=== PATIENT | female | born 1945 | race Caucasian/White ===

== ENCOUNTER 2017-07-21 09:03 | Emergency (ER) | payer MEDICARE ==
[2017-07-21] MEDS ORDERED: diphenhydrAMINE 50 MG/ML VIAL (09:10)
[2017-07-21] MEDS ORDERED: FAMOTIDINE 20 MG/2 ML VIAL (09:10)
[2017-07-21] MEDS ORDERED: methylPREDNISolone SOD SUCC PF 125 MG/2 ML VIAL. (09:11)
[2017-07-21] MEDS: methylPREDNISolone SOD SUCC PF 125 MG/2 ML VIAL. IV (09:26)
[2017-07-21] MEDS: FAMOTIDINE 20 MG/2 ML VIAL IVP (09:27)
[2017-07-21] MEDS: diphenhydrAMINE 50 MG/ML VIAL IV (09:30)
[2017-07-21] MEDS: EPINEPHrine 1 MG/ML VIAL IM (09:31)
[2017-07-21] MEDS: IV NORMAL SALINE 1000ML BAG 500 ML IV (09:34)
[2017-07-22 07:17] LABS: NEGATIVE OBC STREP NEG; POSITIVE OBC STREP POS
== END 2017-07-21 13:29 | disposition home or self-care (01) ==
LOC: ER 09:03
DX: T78.3XXA Angioneurotic edema, initial encounter (principal); T88.7XXA Unspecified adverse effect of drug or medicament, initial encounter; T46.4X5A Adverse effect of angiotensin-converting-enzyme inhibitors, initial encounter; R05 Cough; F41.9 Anxiety disorder, unspecified; I13.0 Hypertensive heart and chronic kidney disease with heart failure and stage 1 through stage 4 chronic kidney disease, or unspecified chronic kidney disease; N18.9 Chronic kidney disease, unspecified; I50.9 Heart failure, unspecified; J44.9 Chronic obstructive pulmonary disease, unspecified; E78.00 Pure hypercholesterolemia, unspecified; G89.29 Other chronic pain; I27.20 Pulmonary hypertension, unspecified; Z88.0 Allergy status to penicillin; Z88.2 Allergy status to sulfonamides; Z90.10 Acquired absence of unspecified breast and nipple; Z79.899 Other long term (current) drug therapy; Z88.8 Allergy status to other drugs, medicaments and biological substances
CPT/HCPCS: 87070; 87880; 96361; 96372; 96374; 96375; 99285-25; J0171; J1200; J2930; J7030; S0028

== ENCOUNTER → 2020-08-08 | Outpatient (CLI) | payer MEDICARE ==
[2017-07-21 13:20] VITALS: BP 157/87
[~2020-08-08] MED LIST: ACET500T68 PO; ALBU2.5V8 INH; ALPR0.254 PO; ALPR0.5T6 PO; ASCO500C PO; ASPI-630 PO; ATOR40TA59 PO; BUDE10.2 IH; BUPR150T7 PO; BUSP15TA PO; DULO60CA45 PO; GABA300C18 PO; HYDR-2761 PO; LISI-338 PO; METO-239 PO; MULT-445 PO; OLME20TA17 PO; OMEP40CA45 PO; OXYB10TA26 PO; POTA20TA4 PO; PRED-220 PO; PRED50TA PO; TIZA4CAP PO; TRAM50TA PO; dayquil
--- NOTE | 2020-08-08 14:50 | PDOC1 ---
INITIAL PAIN CONSULT DATE OF SERVICE: DOS: DATE: 08/08/20 TIME: 14:44 CHIEF COMPLAINT: Chief Complaint: Low back and bilateral lower extremity pain HISTORY OF PRESENT ILLNESS: 75-year-old female presents history of pain in the low back bilateral lower extremities as well as the knees and hips for many years worse since about 2 months ago without any specific injury or accident that she is aware but reports that it was becoming more painful with walking and standing changing positions pain in the low back as well as the mid back rating the bilateral posterior gluteus posterior thighs lateral thighs anterior thighs medial knees and into the calves to the ankles bilaterally. Patient reports right essentially equal to left describes the pain is constant sharp stabbing throbbing shooting tingling in the legs with shooting pain in the lower extremities radiating into the legs as described patient which is burning and cramping in the back as well as aching wakes her from sleep at least once or twice a night does not affect her bowel bladder control but does affect her ability to walk as she has significant fatigability and the legs get achy and painful after about 10 minutes of standing or walking. Patient has had physical therapy as well as trigger point injections in the past both of which were helpful currently taking prednisone 10 mg daily which helps by about 30% as well. Patient reports she was recently on 20 mg prednisone is helped about 90%. Patient not had any diagnostic studies at this time. Patient rates her disability rating 0-10 10 being the worst is a 9 with family home responsibilities recreation social activity 8 with occupation 7 with self-care and 10 with life support activities especially sleeping. Patient has been doing stretching and strength exercises on her own which she learned in physical therapy in the past but would like to pursue more physical therapy PAST MEDICAL HISTORY: PMH: Hypertension, hearing loss, COPD, history of breast cancer, dizziness, arthritis, osteoarthritis, depression, kidney disease, pulmonary hypertension PREVIOUS SURGERIES: Past Surgical Hx: Tonsillectomy, left partial mastectomy CURRENT MEDICATIONS: Current Meds: Active Scripts Medications Dose Route/Sig Max Daily Dose Days Date Category [dayquil] PRN 08/08/20 Reported Acetaminophen 500 Mg Tablet 3 Tab PO PRN Q6HRS PRN 15 08/08/20 Reported Vitamin C (Ascorbic Acid) 500 Mg Capsule.er 250 Mg PO DAILY 08/08/20 Reported Tramadol Hcl 50 Mg Tablet 50 Mg PO Q6HRS PRN 08/08/20 Reported Gabapentin (Gabapentin) 300 Mg Capsule 300 Mg PO DAILY 08/08/20 Reported Benicar (Olmesartan Medoxomil) 20 Mg Tablet 10 Mg PO DAILY 08/08/20 Reported Bupropion Xl (Bupropion Hcl) 150 Mg Tab.er.24h 1 Tab PO DAILY 08/08/20 Reported Buspirone Hcl 15 Mg Tablet 15 Mg PO BID 08/08/20 Reported Omeprazole 40 Mg Capsule.dr 1 Cap PO DAILY 08/08/20 Reported Alprazolam 0.5 Mg Tablet 1 Tab PO BID PRN 08/08/20 Reported Proair Hfa Inhaler (Albuterol Sulfate) 8.5 Gm Hfa.aer.ad 1 Puff INH PRN Q6HRS PRN 03/11/16 Rx Prednisone (Prednisone) 10 Mg Tablet 50 Mg PO DAILY 03/11/16 Rx Metoprolol Succinate ( Xl ) (Metoprolol Succinate) 25 Mg Tab.er.24h 0.5 Tab PO DAILY 03/11/16 Reported Tizanidine Hcl 4 Mg Capsule 4 Mg PO TID PRN 03/11/16 Reported Multivitamins (Multivitamin) 1 Each Tablet 1 Tab PO DAILY 03/11/16 Reported Duloxetine Hcl 60 Mg Capsule.dr 60 Mg PO DAILY 03/11/16 Reported Atorvastatin Calcium 40 Mg Tablet 1 Tab PO QHS 03/11/16 Reported Aspirin 81 Mg Tab.chew 1 Tab PO DAILY 03/11/16 Reported ALLERGIES; Allergies: Coded Allergies: lisinopril (Verified Allergy, Severe, ANGIOEDEMA, 07/21/17) Penicillins (Verified Allergy, Intermediate, 07/21/17) Sulfa (Sulfonamide Antibiotics) (Verified Adverse Reaction, Intermediate, 07/21/17) pt states, 'I'm not really allergic to it, but I'm beginning to have problems since I've had them so much." FAMILY HISTORY: Family Hx: Cancer and heart disease SOCIAL HISTORY: Social Hx: Patient does not renate alcohol does not smoke or use any illegal illicit or recreational drugs is lives locally with 2 grandchildren living at home with her REVIEW OF SYSTEMS: ROS: Positive for those items mentioned in history of present illness, all systems are reviewed, otherwise negative, is complete full and well-documented on patient's chart PHYSICAL EXAM: VS: Blood pressure is 144/87 pulse 80 respirations 16 temperature is 97.9 F height is 5 foot 4 inches weight is 136 pounds PE: PHYSICAL EXAMINATION: GENERAL: The patient is awake, alert, oriented, appropriate, very pleasant demeanor HEENT: Shows normocephalic, atraumatic. Extraocular movements are intact and symmetrical. Oral cavity: Mucous membranes moist and pink. NECK: Shows anterior throat supple without palpable lymphadenopathy noted. Swallow reflex symmetrical. CHEST: Shows normal on inspection. Breath sounds are clear bilaterally, distant but no rales rhonchi wheezes auscultated. HEART: Shows S1, S2 clear. No murmurs auscultated. ABDOMEN: Soft, nontender, nondistended, obese. No palpable organomegaly is noted. BACK: Shows spine grossly in the midline. Normal-appearing cervical lordotic curvature. There is increased thoracic kyphosis, some flattening of the lumbar lordotic curvature. Lumbar paraspinous muscles show symmetrical on inspection, on palpation shows some moderate tenderness diffusely throughout the upper, middle and lower distribution of the paraspinous muscles bilaterally and also into the lower thoracic paraspinous musculature, firm and tender, but without specific trigger points, without radiation of pain. The patient has good rotational motion of the lumbar spine, both laterally as well as extension and flexion without significant difficulty. No tenderness over the spinous processes, sacrum or sacroiliac regions. EXTREMITIES: Lower extremities show deep tendon reflexes 1+ in the patellar and tendo calcaneus tendons. Motor exam is 5 on a scale of 5 with right dorsiflexion, extension, quadriceps and hamstring flexion and 5/5 on the left. Peripheral pulses are 1+ posterior tibial. No peripheral edema is noted bilaterally. Lower extremities are warm and dry to touch, equal in color and appearance. Straight leg raise noted to be negative bilaterally. Gaenslen's and Edmond's maneuvers are negative bilaterally as well. The patient is able to stand, stand her toes without significant difficulty or loss of balance, walks with a normal-appearing gait does not appear to favor the right or left lower extremity significantly is not use any assistive device such as canes or walker to ambulate. SKIN: Shows warm and dry, good turgor. No edema. No sores, rashes or bruising throughout. IMPRESSION: Impression: 75-year-old female with long history of low back bilateral lower extremity pain worse over the past 2 months in a radicular fashion Hypertension COPD Arthritis History of breast cancer Plan: Options were discussed with the patient including conservative medical management physical therapies interventional techniques. We will order physical therapy for home visits for the patient as she done very well with physical therapy in the past. Also will order plain films today of the lumbar spine as well as the pelvis and bilateral hips. Patient is interested in interventional techniques for her radicular pain and we will preauthorize patient for a lumbar epidural steroid injection as well. We discussed the procedure of using description as well as anatomical models to describe the procedure. Patient's questions regarding this were all answered to her satisfaction. Patient will return once preauthorization is obtained for translaminar L4-5 level lumbar epidural steroid injection. MILLICENT SHEA MD Aug 08, 2020 14:50
--- NOTE | 2020-08-08 15:32 | RAD ---
EXAM: Pelvis and bilateral hips, 3 views; lumbar spine, 5 views. HISTORY: Pain. COMPARISON: None. FINDINGS: Pelvis and bilateral hips: A frontal view the pelvis and frog-leg views of both hips are obtained. Th ere is no fracture, dislocation or subluxation. The femoral heads are normal in configuration. Lumbar spine: 5 views of the lumbar spine are obtained. There is slight rightward lateral translation of L2 on L3. There is degenerative endplate remodeling with disc space narrowing at this level, and to a lesser extent, L1 on L2 and L5 on S1. There is grade 1 anterolisthesis of L4 and L5 and L5 on S1 . There is slight retrolisthesis of L1 on L2. There is multilevel facet arthropathy. There is no frac ture. IMPRESSION: 1. Multilevel degenerative change involving the lumbar spine, primarily at L2-L3. 2. Grade 1 anterolisthesis of L4 and L5 and L5 on S1, slight retrolisthesis of L1 on L2 and lumbar sc oliosis centered at L2. Electronically signed by: Laisha Bar MD (08/08/2020 3:30 PM) [id number]
== END | disposition home or self-care (01) ==
LOC: PNCL 13:25
PROVIDERS: ATTEND Anesthesiology
DX: M54.5 Low back pain (principal); I10 Essential (primary) hypertension; J44.9 Chronic obstructive pulmonary disease, unspecified; M19.90 Unspecified osteoarthritis, unspecified site; F32.9 Major depressive disorder, single episode, unspecified; I27.20 Pulmonary hypertension, unspecified; M79.662 Pain in left lower leg; M79.661 Pain in right lower leg; Z85.3 Personal history of malignant neoplasm of breast; Z88.0 Allergy status to penicillin; Z88.1 Allergy status to other antibiotic agents; Z88.8 Allergy status to other drugs, medicaments and biological substances; Z82.49 Family history of ischemic heart disease and other diseases of the circulatory system; Z79.82 Long term (current) use of aspirin; Z79.899 Other long term (current) drug therapy; Z98.890 Other specified postprocedural states
CPT/HCPCS: 72110; 73521; G0463

== ENCOUNTER → 2021-09-06 | Outpatient (CLI) | payer MEDICARE ==
[2017-07-21 13:20] VITALS: BP 157/87
[~2021-09-06] MED LIST changes: +BUPR150T21 PO; -BUPR150T7 PO; -LISI-338 PO; +LISI5TAB15 PO; -OMEP40CA45 PO; +OMEP40CA7 PO
[2021-09-06 12:16] LABS: BASO # 0.1 x10^3/uL (0.0-0.2); BASO % 1 % (0-3); EOS % 1 % (0-3); HEMATOCRIT 31.4 % (36.0-47.0); HEMOGLOBIN 9.8 g/dL (12.0-15.5); LYMPH # 0.9 x10^3/uL (1.0-4.8); LYMPH % 14 % (24-48); MEAN CORPUSCULAR HEMOGLOBIN 31 pg (25-35); MEAN CORPUSCULAR HGB CONC 31 g/dL (31-37); MEAN CORPUSCULAR VOLUME 99 fL (79-100); MONO # 0.4 x10^3/uL (0.0-1.1); MONO % 7 % (0-9); NEUT # 4.9 x10^3/uL (1.8-7.7); NEUT % 78 % (31-73); PLATELET COUNT 174 x10^3/uL (140-400); RED BLOOD COUNT 3.16 x10^6/uL (3.50-5.40); RED CELL DISTRIBUTION WIDTH 15.5 % (11.5-14.5); WHITE BLOOD COUNT 6.3 x10^3/uL (4.0-11.0)
[2021-09-06 12:30] LABS: CALCIUM 8.5 mg/dL (8.5-10.1); CREATININE 1.6 mg/dL (0.6-1.0); GFR 31.2; POTASSIUM 4.4 mmol/L (3.5-5.1)
[2021-09-06 12:35] LABS: ALBUMIN 3.5 g/dL (3.4-5.0); ALBUMIN/GLOBULIN RATIO 1.1 (1.0-1.7); TOTAL BILIRUBIN 0.5 mg/dL (0.2-1.0); TOTAL PROTEIN 6.8 g/dL (6.4-8.2)
== END ==
LOC: ONCLAB 10:47
PROVIDERS: ATTEND Internal Medicine Hematology & Oncology
DX: D46.C Myelodysplastic syndrome with isolated del(5q) chromosomal abnormality (principal)
CPT/HCPCS: 36415; 80053; 85025

== ENCOUNTER → 2021-09-13 | Outpatient (CLI) | payer MEDICARE ==
[2017-07-21 13:20] VITALS: BP 157/87
[~2021-09-13] MED LIST changes: +PRED2.5T PO
--- NOTE | 2021-09-13 10:55 | PDOC ---
Progress Note - Pain Clinic Date of Service: DOS: DATE: 09/13/21 TIME: 10:48 Diagnosis: Dx: Lumbar radiculopathy with lumbar degenerative disc disease Cervical radiculopathy with cervical degenerative disc disease Bilateral knee joint pain with osteoarthritis Bilateral shoulder joint pain with osteoarthritis History or Present Illness: HPI: 76-year-old female presents with pain low back right lower extremity across low back into the right leg posterior gluteus posterior lateral thigh lateral anterior thigh anteromedial thigh medial lower leg and posterior calf on the right side with walking standing changing positions. Patient reports its worse with climbing stairs or going down the stairs especially also pain across the low back with this activity patient reports is an 8 on scale 10 is worse over the past week 5 on average 3 to [place] is a 3 today patient reports much better sitting or laying down generally does not awaken her from sleep at night unless she lays on her left side and it does hurt on the right side with pain in her leg patient is been sleeping on the right side but is more comfortable patient scribes pain is aching and sharp in the back dull and tight alternating shooting in the right lower extremity burning cramping and stabbing can be constant and severe in the right leg as well. Patient has had physical therapy as well as trigger point injection in the past both of which were helpful but only temporarily patient is also tried prednisone which has been helpful reducing the pain by about 30% as well. Patient is been doing stretching strength exercises on her own which she reports are helpful but not long-lasting and the pain is becoming more persistent in the low back and the right lower extremity. Patient is taking [id number] Tylenol which helps the pain by about 20% as well. Patient reports she is used a TENS unit in the past, with her physical therapy but this was not significantly helpful as well. Physical Exam: VS: Pressure 150/71 pulse 88 respirations 18 temperature 97.6 F height 5 feet 4 his weight is 130 pounds. PE: PHYSICAL EXAMINATION: GENERAL: The patient is awake, alert, oriented, appropriate, very pleasant in demeanor, patient accompanied by her sister. HEENT: Shows normocephalic, atraumatic. Extraocular movements are intact and symmetrical. Oral cavity: Mucous membranes moist and pink. NECK: Shows anterior throat supple without palpable lymphadenopathy noted. Swallow reflex symmetrical. CHEST: Shows normal on inspection. Breath sounds are clear bilaterally, no rales rhonchi or wheezes auscultated. HEART: Shows S1, S2 clear. No murmurs auscultated. ABDOMEN: Soft, nontender, nondistended. No palpable organomegaly is noted. BACK: Shows spine grossly in the midline. Normal-appearing cervical lordotic curvature. There is moderately increased thoracic kyphosis, some mild flattening of the lumbar lordotic curvature. Lumbar paraspinous muscles show symmetrical on inspection, on palpation shows some moderate tenderness diffusely throughout the upper, middle and lower distribution of the paraspinous muscles without specific trigger points, without radiation of pain. The patient has good rotational motion of the lumbar spine, both laterally as well as extension and flexion without significant difficulty. No tenderness over the spinous processes, sacrum or sacroiliac regions. EXTREMITIES: Lower extremities show deep tendon reflexes 1+ in the patellar and tendo calcaneus tendons. Motor exam is 4 on a scale of 5 with right dorsiflexio n, extension, quadriceps and hamstring flexion and 5/5 on the left. Peripheral pulses are 1+ posterior tibial. No peripheral edema is noted bilaterally. Lower extremities are warm and dry to touch, equal in color and appearance. Straight leg raise noted to be positive on the right approximately 35 degrees, decreased with knee flexion degrees, left side is negative. SKIN: Shows warm and dry, good turgor. No edema. No sores, rashes or bruising throughout. Procedure: Procedure: Options were discussed with patient. Patient's old chart was reviewed as her current medication regimen updated current review of systems updated today as well. We will preauthorize patient for lumbar epidural steroid injection as she has clinical L4-5 dermatomal radiculopathy on the right side. Once approved, patient will return for translaminar approach L4-5 level translaminar epidural steroid injection with fluoroscopic guidance. Patient will continue with stretching 3 exercises daily exercises as well as oral analgesics as currently in the meantime. Medication Injected: Med Injected: None Condition at Discharge: Condition at Discharge: Condition at discharge is stable. MILLICENT SHEA MD Sep 13, 2021 10:54
== END | disposition home or self-care (01) ==
LOC: PNCL 10:01
PROVIDERS: ATTEND Anesthesiology
DX: M51.16 Intervertebral disc disorders with radiculopathy, lumbar region (principal); M50.10 Cervical disc disorder with radiculopathy, unspecified cervical region; M17.0 Bilateral primary osteoarthritis of knee; M19.011 Primary osteoarthritis, right shoulder; M19.012 Primary osteoarthritis, left shoulder; Z79.82 Long term (current) use of aspirin; Z79.899 Other long term (current) drug therapy; Z98.890 Other specified postprocedural states; Z88.0 Allergy status to penicillin; Z88.2 Allergy status to sulfonamides
CPT/HCPCS: 99212; G0463

== ENCOUNTER → 2021-09-20 | Outpatient (CLI) | payer MEDICARE ==
[2017-07-21 13:20] VITALS: BP 157/87
[~2021-09-20] MED LIST changes: +ASPI325T8 PO; +DEXAMETHASONE PRES.FREE 10 MG/ML VIAL. ONE; +IOHEXOL 180 MG/ML 10 ML VIAL. ONE
--- NOTE | 2021-09-20 14:39 | PDOC4 ---
Procedure Note: ICD 10 Code: ICD 10 Code: M54.16 M51.36 Procedure Note: Patient was consented for lumbar epidural steroid injection fluoroscopic guidance. Risks were discussed including but not limited to: Bleeding, infection, possibility of epidural hematoma and subsequent neurological compromise, dural puncture, headaches, spinal cord and/or nerve damage, side effects of steroid medication, and poor results regarding pain control. Patient understands and wished to proceed. Procedure is lumbar epidural steroid injection under local anesthetic using sterile prep and drape at the L4-5 level using C-arm fluoroscopic guidance in both AP and lateral views medications injected is 20 mg dexamethasone +10mL preservative-free normal saline and 2 mL contrast- condition at discharge is stable patient tolerated procedure well had no complications. MILLICENT SHEA MD Sep 20, 2021 14:39
--- NOTE | 2021-09-20 14:39 | PDOC ---
Progress Note - Pain Clinic Date of Service: DOS: DATE: 09/20/21 TIME: 14:35 Diagnosis: Dx: Lumbar radiculopathy with lumbar degenerative disc disease Cervical radiculopathy with cervical degenerative disease Bilateral knee joint pain with osteoarthritis Bilateral shoulder joint pain with osteoarthritis History or Present Illness: HPI: 76-year-old female with history of pain low back bilateral lower extremities right greater than left reports she fell about 2 weeks ago over her dog at home scraping both of her knees and causing increased pain in both her lower extremities were initially was only on the right side now is in both the lower extremities patient reports with walking standing changing positions much more noticeable pain across the low back into the bilateral lower extremities again worse on the right but both of them patient ports aching sharp dull tight shooting in the back cramping and shooting the leg radiating and can be severe with walking standing patient reports a 6 on scale 10 is worst 6 on average 5 at its least and is a 6 today patient reports no bowel or bladder incontinence generally better with off of her feet sleeps well at night but is worse in the morning when she first gets up with pain radiating into the posterior gluteus lateral thigh anterior thigh medial thighs and into the calves both anteriorly and posteriorly. Patient reports no bowel bladder incontinence. Physical Exam: VS: Blood pressure is 141/83 pulse 74 respirations are 20 temperature is 90.1 F weight is 134 pounds. PE: PHYSICAL EXAMINATION: GENERAL: The patient is awake, alert, oriented, appropriate, very pleasant in demeanor, patient accompanied by her sister HEENT: Shows normocephalic, atraumatic. Extraocular movements are intact and symmetrical. Patient wearing eyeglasses. Oral cavity: Mucous membranes moist and pink. NECK: Shows anterior throat supple without palpable lymphadenopathy noted. Swallow reflex symmetrical. CHEST: Shows normal on inspection. Breath sounds are clear bilaterally, no rales or rhonchi. HEART: Shows S1, S2 clear. No murmurs auscultated. ABDOMEN: Soft, nontender, nondistended. No palpable organomegaly is noted. BACK: Shows spine grossly in the midline. Normal-appearing cervical lordotic curvature. There is moderate increased thoracic kyphosis, some mild flattening of the lumbar lordotic curvature. Lumbar paraspinous muscles show symmetrical on inspection, on palpation shows some moderate tenderness diffusely throughout the upper, middle and lower distribution of the paraspinous muscles, but without specific trigger points, without radiation of pain. The patient has good rotational motion of the lumbar spine, both laterally as well as extension and flexion without significant difficulty. No tenderness over the spinous processes, sacrum or sacroiliac regions. EXTREMITIES: Lower extremities show deep tendon reflexes 1+ in the patellar and tendo calcaneus tendons. Motor exam is 4 on a scale of 5 with right dorsiflexion, extension, quadriceps and hamstring flexion and 5/5 on the left. Peripheral pulses are 1+ posterior tibial. No peripheral edema is noted bilaterally. Lower extremities are warm and dry to touch, equal in color and appearance. SKIN: Shows warm and dry, good turgor. No edema. No sores, rashes or bruising throughout. Procedure: Procedure: Options discussed with the patient. Patient's old chart was reviewed as her current medication regimen basic review of systems updated today as well. We will proceed with a lumbar epidural steroid injection today with fluoroscopic guidance. Risks were discussed including but not limited to: Bleeding, infection, possibility of epidural hematoma and subsequent neurological compromise, dural puncture, headaches, spinal cord and/or nerve damage, side effects of steroid medication, and poor results regarding pain control. Patient understands and wished to proceed. Patient will return to the clinic in approximately 2 weeks for follow-up, was counseled as to return appointment, activity level, and side effect to be aware of. Medication Injected: Med Injected: Procedure is lumbar epidural steroid injection under local anesthetic using sterile prep and drape at the L4-5 level using C-arm fluoroscopic guidance in both AP and lateral views medications injected is 20 mg dexamethasone +10mL preservative-free normal saline and 2 mL contrast- condition at discharge is stable patient tolerated procedure well had no complications. Condition at Discharge: Condition at Discharge: Condition at discharge stable, paced tolerated procedure well and had no complications. MILLICENT SHEA MD Sep 20, 2021 14:39
== END | disposition home or self-care (01) ==
LOC: PNCL 13:48
PROVIDERS: ATTEND Anesthesiology
DX: M51.16 Intervertebral disc disorders with radiculopathy, lumbar region (principal); M50.10 Cervical disc disorder with radiculopathy, unspecified cervical region; M17.0 Bilateral primary osteoarthritis of knee; M19.012 Primary osteoarthritis, left shoulder; M19.011 Primary osteoarthritis, right shoulder; Z79.82 Long term (current) use of aspirin; Z79.899 Other long term (current) drug therapy; Z88.0 Allergy status to penicillin; Z88.2 Allergy status to sulfonamides; Z88.8 Allergy status to other drugs, medicaments and biological substances
CPT/HCPCS: 62323; J1100; Q9965

== ENCOUNTER → 2021-10-09 | Outpatient (CLI) | payer MEDICARE ==
[2017-07-21 13:20] VITALS: BP 157/87
--- NOTE | 2021-10-09 10:51 | PDOC ---
Progress Note - Pain Clinic Date of Service: DOS: DATE: 10/09/21 TIME: 10:48 Diagnosis: Dx: Lumbar radiculopathy with lumbar degenerative disc disease Cervical radiculopathy with cervical degenerative disc disease Bilateral knee joint pain with osteoarthritis Bilateral shoulder joint pain with osteoarthritis History or Present Illness: HPI: 76-year-old female returns for follow-up status post lumbar epidural steroid injection x1. Patient reports about 100% improvement on the right leg and about 50% improvement overall patient reports her left leg is still significantly painful much more painful and she noticed that her right leg was so painful now it is 100% better on the right patient reports her left side is increasing with pain radiating down into the left lower extremity lateral thigh anterior thigh medial thigh medial lower leg and anterior lower leg which is aching and dull cramping and stabbing at times patient reports is worse with walking standing changing positions initially to do much better with distance walking doing household activities try with greater ease and comfort sleeping better it is been it awaken her from sleep only on the left side about every 4 hours. Patient reports no bowel or bladder incontinence she did increase her activity with much greater ease and comfort rates her pain is a 9 on scale 10 is worst from a 4-7 on average 3 at its least, and is a 4 today. Patient reports that now that the left leg is significantly painful it is much more noticeable than the right and the right is essentially resolved at this time. Patient reports no bowel or bladder incontinence no new deficits. Physical Exam: VS: Blood pressure 131/68 pulse 84 respirations 18 temperature 98.6 F height 5 feet 2 inches weight 133 pounds. PE: PHYSICAL EXAMINATION: GENERAL: The patient is awake, alert, oriented, appropriate, very pleasant in demeanor, patient accompanied by her sister. HEENT: Shows normocephalic, atraumatic. Extraocular movements are intact and symmetrical. Patient wearing eyeglasses. Oral cavity: Mucous membranes moist and pink. NECK: Shows anterior throat supple without palpable lymphadenopathy noted. Swallow reflex symmetrical. CHEST: Shows normal on inspection. Breath sounds are clear bilaterally. HEART: Shows S1, S2 clear. No murmurs auscultated. ABDOMEN: Soft, nontender, nondistended. No palpable organomegaly is noted. BACK: Shows spine grossly in the midline. Normal-appearing cervical lordotic curvature. There is mildly increased thoracic kyphosis, some mild flattening of the lumbar lordotic curvature. Lumbar paraspinous muscles show symmetrical on inspection, on palpation shows some moderate tenderness diffusely throughout the upper, middle and lower distribution of the paraspinous muscles without specific trigger points, without radiation of pain. The patient has good rotational motion of the lumbar spine, both laterally as well as extension and flexion without significant difficulty. No tenderness over the spinous processes, sacrum or sacroiliac regions. EXTREMITIES: Lower extremities show deep tendon reflexes 1 in the patellar and tendo calcaneus tendons. Motor exam is 4 on a scale of 5 with right dorsiflexion, extension, quadriceps and hamstring flexion and 5/5 on the left. Peripheral pulses are 1+ posterior tibial. No peripheral edema is noted bilaterally. Lower extremities are warm and dry to touch, equal in color and appearance. SKIN: Shows warm and dry, good turgor. No edema. No sores, rashes or bruising throughout. Procedure: Procedure: Options were discussed with the patient. Patient chart was reviewed as her current medication regimen updated current review of systems updated today as well. We will proceed with a lumbar epidural steroid injection today with fluoroscopic guidance. Risks were discussed including but not limited to: Bleeding, infection, possibility of epidural hematoma and subsequent neurological compromise, dural puncture, headaches, spinal cord and/or nerve damage, side effects of steroid medication, and poor results regarding pain control. Patient understands and wished to proceed. Patient will return to the clinic in approximately 2 weeks for follow-up, was counseled as to return appointment, activity level, and side effect to be aware of. Medication Injected: Med Injected: Procedure is lumbar epidural steroid injection under local anesthetic using sterile prep and drape at the L4-5 level using C-arm fluoroscopic guidance in both AP and lateral views medications injected is 20 mg dexamethasone +10mL preservative-free normal saline and 2 mL contrast- condition at discharge is stable patient tolerated procedure well had no complications. Condition at Discharge: Condition at Discharge: Condition at discharge stable, patient tolerated the procedure well had no complications. MILLICENT SHEA MD Oct 09, 2021 10:51
--- NOTE | 2021-10-09 10:52 | PDOC4 ---
Procedure Note: ICD 10 Code: ICD 10 Code: M54.16 M51.36 Procedure Note: Patient was consented for lumbar epidural steroid injection with fluoroscopic guidance. Risks were discussed including but not limited to: Bleeding, infection, possibility of epidural hematoma and subsequent neurological compromise, dural puncture, headaches, spinal cord and/or nerve damage, side effects of steroid medication, and poor results regarding pain control. Patient understands and wished to proceed. Procedure is lumbar epidural steroid injection under local anesthetic using sterile prep and drape at the L4-5 level using C-arm fluoroscopic guidance in both AP and lateral views medications injected is 20 mg dexamethasone +10mL preservative-free normal saline and 2 mL contrast- condition at discharge is stable patient tolerated procedure well had no complications. MILLICENT SHEA MD Oct 09, 2021 10:52
== END | disposition home or self-care (01) ==
LOC: PNCL 10:08
PROVIDERS: ATTEND Anesthesiology
DX: M51.16 Intervertebral disc disorders with radiculopathy, lumbar region (principal); M50.10 Cervical disc disorder with radiculopathy, unspecified cervical region; M17.0 Bilateral primary osteoarthritis of knee; M19.012 Primary osteoarthritis, left shoulder; M19.011 Primary osteoarthritis, right shoulder; Z79.82 Long term (current) use of aspirin; Z79.899 Other long term (current) drug therapy; Z88.0 Allergy status to penicillin; Z88.2 Allergy status to sulfonamides; Z88.8 Allergy status to other drugs, medicaments and biological substances
CPT/HCPCS: 62323; J1100; Q9965

== ENCOUNTER → 2021-10-10 | Outpatient (CLI) | payer MEDICARE ==
[2017-07-21 13:20] VITALS: BP 157/87
[~2021-10-10] MED LIST changes: -DEXAMETHASONE PRES.FREE 10 MG/ML VIAL. ONE; -IOHEXOL 180 MG/ML 10 ML VIAL. ONE
[2021-10-10 15:35] LABS: BASO % 0 % (0-3); EOS % 0 % (0-3); HEMOGLOBIN 8.8 g/dL (12.0-15.5); LYMPH # 0.8 x10^3/uL (1.0-4.8); LYMPH % 8 % (24-48); MEAN CORPUSCULAR HEMOGLOBIN 30 pg (25-35); MEAN CORPUSCULAR HGB CONC 31 g/dL (31-37); MEAN CORPUSCULAR VOLUME 96 fL (79-100); MONO # 1.1 x10^3/uL (0.0-1.1); MONO % 11 % (0-9); NEUT # 7.7 x10^3/uL (1.8-7.7); NEUT % 80 % (31-73); PLATELET COUNT 176 x10^3/uL (140-400); RED BLOOD COUNT 2.91 x10^6/uL (3.50-5.40); RED CELL DISTRIBUTION WIDTH 16.3 % (11.5-14.5); WHITE BLOOD COUNT 9.6 x10^3/uL (4.0-11.0)
[2021-10-10 15:48] LABS: CALCIUM 8.1 mg/dL (8.5-10.1); CREATININE 1.9 mg/dL (0.6-1.0); GFR 25.6; POTASSIUM 4.5 mmol/L (3.5-5.1)
[2021-10-10 15:53] LABS: ALBUMIN 3.6 g/dL (3.4-5.0); ALBUMIN/GLOBULIN RATIO 1.2 (1.0-1.7); TOTAL BILIRUBIN 0.4 mg/dL (0.2-1.0); TOTAL PROTEIN 6.7 g/dL (6.4-8.2)
== END ==
LOC: ONCLAB 14:54
PROVIDERS: ATTEND Internal Medicine Hematology & Oncology
DX: C50.912 Malignant neoplasm of unspecified site of left female breast (principal)
CPT/HCPCS: 36415; 80053; 85025

== ENCOUNTER → 2021-10-23 | Outpatient (CLI) | payer MEDICARE ==
[2017-07-21 13:20] VITALS: BP 157/87
[~2021-10-23] MED LIST changes: +BUPIVACAINE MPF 0.25% 10 ML VIAL. ONE; +DEXAMETHASONE PRES.FREE 10 MG/ML VIAL. ONE; +IOHEXOL 180 MG/ML 10 ML VIAL. ONE
--- NOTE | 2021-10-23 11:44 | PDOC4 ---
Procedure Note: ICD 10 Code: ICD 10 Code: M70.62 Procedure Note: Patient was consented for left greater trochanteric bursa injection with fluoroscopic guidance. Risks discussed include not limited to bleeding infection possibility of intravascular injection sequelae spread of local anesthetic numbness side effects of steroid medication exposure to fluoroscopy and poor results regarding pain control. Patient understands and wished to proceed. Under sterile prep and drape patient in supine position using C-arm fluoroscopic guidance patient's left greater trochanter was visualized. Using 25-gauge needle and 1% lidocaine area lateral to the greater trochanter was anesthetized. Using a 25-gauge needle under direct fluoroscopic visualization the greater trochanteric bursa was contacted with negative aspiration noted. 1.5 cc of contrast was then injected with good local spread at the greater trochanteric bursa without washout bilaterally. At this time, a solution containing 3 cc of 0.25% bupivacaine and 10 mg Decadron was then injected into the greater trochanteric bursa.Patient tolerated the procedure well and had no complications. MILLICENT SHEA MD Oct 23, 2021 11:44
--- NOTE | 2021-10-23 11:44 | PDOC ---
Progress Note - Pain Clinic Date of Service: DOS: DATE: 10/23/21 TIME: 11:39 Diagnosis: Dx: Lumbar radiculopathy with lumbar degenerative disease Left greater trochanteric bursitis Cervical radiculopathy with cervical degenerative disc disease Bilateral knee joint pain with osteoarthritis Bilateral shoulder joint pain with osteoarthritis History or Present Illness: HPI: 76-year-old female returns in follow-up status post lumbar epidural steroid injection x2. Patient reports improved by about 75% overall with pain now on th e left lateral aspect of the hip which is much more tender than where she had before in the low back and into the right posterior gluteus and the leg patient reports that is still present as area but much improved at the left lateral hip however is her chief complaint today worse with walking standing changing position specially getting up from a seated position and standing and stepping forward with the left leg patient reports aching sharp alternating with dull pain in the lateral thigh as well radiating to the knee patient reports tingling can be cramping and stabbing severe and unbearable at times patient reports is an 8-9 on scale 10 is worse 8 on average and a 4 to [place] is an 8 today. Patient reports no loss of motor function no bowel or bladder incontinence. Physical Exam: VS: Blood pressure is 152/78 pulse 78 respirations 16 temperature 97.7 F weight is 132 pounds. PE: PHYSICAL EXAMINATION: GENERAL: The patient is awake, alert, oriented, appropriate, very pleasant in demeanor HEENT: Shows normocephalic, atraumatic. Extraocular movements are intact and symmetrical. Oral cavity: Mucous membranes moist and pink. NECK: Shows anterior throat supple without palpable lymphadenopathy noted. Sw allow reflex symmetrical. CHEST: Shows normal on inspection. Breath sounds are clear bilaterally, no rales rhonchi or wheezes auscultated. HEART: Shows S1, S2 clear. No murmurs auscultated. ABDOMEN: Soft, nontender, nondistended. No palpable organomegaly is noted. BACK: Shows spine grossly in the midline. Normal-appearing cervical lordotic curvature. There is slightly increased thoracic kyphosis, some minor flattening of the lumbar lordotic curvature. Lumbar paraspinous muscles show symmetrical on inspection, on palpation shows some moderate tenderness diffusely throughout the upper, middle and lower distribution of the paraspinous muscles without specific trigger points, without radiation of pain. The patient has good rotational motion of the lumbar spine, both laterally as well as extension and flexion without significant difficulty. EXTREMITIES: Lower extremities show deep tendon reflexes 1 in the patellar and tendo calcaneus tendons. Motor exam is 4 on a scale of 5 with right dorsiflexion, extension, quadriceps and hamstring flexion and 5/5 on the left. Peripheral pulses are 1+ posterior tibial. No peripheral edema is noted bilaterally. Lower extremities are warm and dry to touch, equal in color and appearance. Patient's left hip shows significant tenderness over the left greater trochanter with very severe pain with even moderate palpation over the trochanter itself with some mild radiation into the lateral thigh. Right side is nontender. SKIN: Shows warm and dry, good turgor. No edema. No sores, rashes or bruising throughout. Procedure: Procedure: Options were discussed with the patient. Patient's chart was reviewed as her current medication regimen updated her review of systems updated today as well. We will proceed with a left greater trochanteric bursa injection today with fluoroscopic guidance. Discussed including not limited to bleeding infection possibility of intravascular injection sequelae spread local anesthetic numbness side effects steroid medications post fluoroscopy and portals regarding pain control. Patient understands wished to proceed. Patient return to clinic in approximate 2 weeks for follow-up, was counseled as to return appointment, activity level, and side effect to be aware of. Medication Injected: Med Injected: Under sterile prep and drape patient in supine position using C-arm fluoroscopic guidance patient's left greater trochanter was visualized. Using 25-gauge needle and 1% lidocaine area lateral to the greater trochanter was anesthetized. Using a 25-gauge needle under direct fluoroscopic visualization the greater trochanteric bursa was contacted with negative aspiration noted. 1.5 cc of contrast was then injected with good local spread at the greater trochanteric bursa without washout bilaterally. At this time, a solution containing 3 cc of 0.25% bupivacaine and 10 mg Decadron was then injected into the greater trochanteric bursa.Patient tolerated the procedure well and had no complications. Condition at Discharge: Condition at Discharge: Condition at discharge stable, paced tolerated procedure well and had no complications. MILLICENT SHEA MD Oct 23, 2021 11:43
== END | disposition home or self-care (01) ==
LOC: PNCL 10:25
PROVIDERS: ATTEND Anesthesiology
DX: M70.62 Trochanteric bursitis, left hip (principal); M51.16 Intervertebral disc disorders with radiculopathy, lumbar region; M17.0 Bilateral primary osteoarthritis of knee; M19.011 Primary osteoarthritis, right shoulder; M19.012 Primary osteoarthritis, left shoulder; M50.10 Cervical disc disorder with radiculopathy, unspecified cervical region; Z79.82 Long term (current) use of aspirin; Z79.899 Other long term (current) drug therapy; Z88.0 Allergy status to penicillin; Z88.2 Allergy status to sulfonamides; Z88.8 Allergy status to other drugs, medicaments and biological substances
CPT/HCPCS: 20610; 77002; J1100; J3490; Q9965

== ENCOUNTER → 2021-11-06 | Outpatient (CLI) | payer MEDICARE ==
[2017-07-21 13:20] VITALS: BP 157/87
[~2021-11-06] MED LIST changes: -BUPIVACAINE MPF 0.25% 10 ML VIAL. ONE
--- NOTE | 2021-11-06 10:29 | PDOC ---
Progress Note - Pain Clinic Date of Service: DOS: DATE: 11/06/21 TIME: 10:24 Diagnosis: Dx: Lumbar radiculopathy with lumbar degenerative disc disease Cervical radiculopathy cervical degenerative disease Bilateral knee joint pain with osteoarthritis Bilateral shoulder joint pain with osteoarthritis Left greater trochanteric bursitis History or Present Illness: HPI: 76-year-old female returns for follow-up status post left greater trochanteric bursa injection October 23, 2021. Patient reports he did very well with about a 75% improvement in the left lateral hip pain but main complaint today is now pain radiating into the lower extremity into the lateral anterior thigh anteromedial thigh medial calf as well as into the lateral anterior thigh medial lower leg patient reports it is an 8 on scale 10 is worst least and average is 8 today patient reports it is on and off in intensity but worse with standing walking changing positions dull and sharp in the back radiating shooting in the leg again in the medial thigh medial calf and posterior calf to some extent as well with walking standing patient reports is better with sitting or lying down but is been it awaken her from sleep again her left hip is doing much better after greater trochanteric bursa injection but the pain radiated down in the leg and the low back is much more pronounced patient reports no new motor or sensory deficits no bowel or bladder incontinence. Physical Exam: VS: Blood pressure 171/86 pulse 68 respirations 20 temperature 97.2 F height is 5 foot weight is 133 pounds PE: PHYSICAL EXAMINATION: GENERAL: The patient is awake, alert, oriented, appropriate, very pleasant in demeanor HEENT: Shows normocephalic, atraumatic. Extraocular movements are intact and symmetrical. Patient wearing eyeglasses. Oral cavity: Mucous membranes moist and pink. NECK: Shows anterior throat supple without palpable lymphadenopathy noted. Swallow reflex symmetrical. CHEST: Shows normal on inspection. Breath sounds are clear bilaterally, no rales rhonchi or wheezes auscultated. HEART: Shows S1, S2 clear. No murmurs auscultated. ABDOMEN: Soft, nontender, nondistended. No palpable organomegaly is noted. BACK: Shows spine grossly in the midline. Normal-appearing cervical lordotic c urvature. There is moderately increased thoracic kyphosis, some flattening of the lumbar lordotic curvature. Lumbar paraspinous muscles show symmetrical on inspection, on palpation shows some moderate tenderness diffusely throughout the upper, middle and lower distribution of the paraspinous muscles without specific trigger points, without radiation of pain. The patient has good rotational motion of the lumbar spine, both laterally as well as extension and flexion without significant difficulty. EXTREMITIES: Lower extremities show deep tendon reflexes 1+ in the patellar and tendo calcaneus tendons. Motor exam is 5 on a scale of 5 with right dorsiflexion, extension, quadriceps and hamstring flexion and 4/5 on the left. Peripheral pulses are 1+ posterior tibial. No peripheral edema is noted bilaterally. Lower extremities are warm and dry to touch, equal in color and appearance. SKIN: Shows warm and dry, good turgor. No edema. No sores, rashes or bruising throughout. Procedure: Procedure: Options were discussed with patient. Patient's old chart was reviewed as well as her current medication regimen updated current review of systems updated today as well. We will proceed with a lumbar epidural steroid injection today with fluoroscopic guidance. Risks were discussed including but not limited to: Bleeding, infection, possibility of epidural hematoma and subsequent neurological compromise, dural puncture, headaches, spinal cord and/or nerve damage, side effects of steroid medication, and poor results regarding pain control. Patient understands and wished to proceed. Patient will return to the clinic in approximate 2 weeks for follow-up, was counseled as to return appointment, activity level, and side effects to be aware of. Medication Injected: Med Injected: Procedure is lumbar epidural steroid injection under local anesthetic using sterile prep and drape at the L4-5 level using C-arm fluoroscopic guidance in both AP and lateral views medications injected is 120 mg methylprednisolone +10mL preservative-free normal saline and 2 mL contrast- condition at discharge is stable patient tolerated procedure well had no complications. Condition at Discharge: Condition at Discharge: Condition at discharge stable, patient tolerated the procedure well and had no complications. MILLICENT SHEA MD Nov 06, 2021 10:29
--- NOTE | 2021-11-06 10:30 | PDOC4 ---
Procedure Note: ICD 10 Code: ICD 10 Code: M54.16 M51.36 Procedure Note: Patient was consented for lumbar epidural steroid injection with fluoroscopic guidance. Risks were discussed including but not limited to: Bleeding, infection, possibility of epidural hematoma and subsequent neurological compromise, dural puncture, headaches, spinal cord and/or nerve damage, side effects of steroid medication, and poor results regarding pain control. Patient understands and wished to proceed. Procedure is lumbar epidural steroid injection under local anesthetic using sterile prep and drape at the L4-5 level using C-arm fluoroscopic guidance in both AP and lateral views medications injected is 120 mg methylprednisolone +10mL preservative-free normal saline and 2 mL contrast- condition at discharge is stable patient tolerated procedure well had no complications. MILLICENT SHEA MD Nov 06, 2021 10:30
== END | disposition home or self-care (01) ==
LOC: PNCL 09:50
PROVIDERS: ATTEND Anesthesiology
DX: M51.16 Intervertebral disc disorders with radiculopathy, lumbar region (principal); M50.10 Cervical disc disorder with radiculopathy, unspecified cervical region; M17.0 Bilateral primary osteoarthritis of knee; M19.012 Primary osteoarthritis, left shoulder; M19.011 Primary osteoarthritis, right shoulder; M70.62 Trochanteric bursitis, left hip; Z79.899 Other long term (current) drug therapy; Z88.0 Allergy status to penicillin; Z88.2 Allergy status to sulfonamides; Z88.8 Allergy status to other drugs, medicaments and biological substances
CPT/HCPCS: 62323; J1100; Q9965

== ENCOUNTER 2021-12-08 10:09 | Emergency (ER) | payer MEDICARE ==
[2017-07-21 13:20] VITALS: BP 157/87
[~2021-12-08 10:09] MED LIST changes: -DEXAMETHASONE PRES.FREE 10 MG/ML VIAL. ONE; -IOHEXOL 180 MG/ML 10 ML VIAL. ONE
--- NOTE | 2021-12-08 11:24 | RAD ---
EXAM: Head CT without contrast; cervical and thoracic spine CT without contrast. HISTORY: Trauma. Fall. Pain. TECHNIQUE: Computed tomographic images of the head, cervical and thoracic spine were obtained without contrast. *One or more of the following individualized dose reduction techniques were utilized for this examina tion: 1. Automated exposure control. 2. Adjustment of the mA and/or kV according to patient size. 3. Use of iterative reconstruction technique. COMPARISON: None. FINDINGS: Head: There is no intracranial hemorrhage. There is no mass effect or midline shift. There is no hydr ocephalus. There is cerebral volume loss. 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 The orbits and visualized paranasal sinuses and mastoid air cells are unrem arkable. There is left temporomandibular joint osteoarthritis. Cervical spine: There is anterolisthesis of C4 on C5, measuring 5 mm. This is chronic in appearance. There is cervical kyphosis. There is multilevel endplate remodeling with disc space narrowing, osteop hytosis and Schmorl's node formation. There is fusion of the facet joints and partial fusion across t he disc space at C3-C4. There is slight widening of the left facet joint at C4-C5. No lytic or sclero tic osseous lesion is seen. There are disc protrusions and disc osteophyte complexes at multiple levels. 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 The combination of degenerative changes results in mild right foraminal st enosis at C2-C3, moderate bilateral foraminal stenosis at C3-C4, severe right and moderate to severe left foraminal stenosis at C4-C5, severe bilateral foraminal and mild central canal stenosis at C5-C6 , and severe right and moderate to severe left foraminal and mild central canal stenosis at C6-C7. Th ere is mild biapical pleural parenchymal scarring. Thoracic spine: There is no significant listhesis. The vertebral bodies are normal in height and the disc spaces are preserved. There is mild multilevel endplate remodeling. There is disc space calcific ation at T4-T5. There are few small thoracic disc protrusions. There is mild facet arthropathy at mul tiple levels. There are calcified mediastinal and hilar granulomas. There is coronary artery calcification. There i s a tiny ossicle adjacent to the tip of the right L1 transverse process, likely developmental in etio logy. No significant thoracic foraminal or central canal stenosis is seen. IMPRESSION: 1. 5 mm anterolisthesis of C4 on C5 with associated advanced endplate changes and severe bilateral fa cet arthropathy, favoring a degenerative chronic etiology. There is slight widening of the left facet joint at this level which is also likely due to advanced degenerative change and possible joint effu nicol. No fracture, subluxation or dislocation is seen. 2. Multilevel degenerative change throughout the spine, described in detail above. This results in si gnificant stenosis at the aforementioned levels. 3. No acute intracranial finding. There are cerebral white matter changes due to chronic small vessel disease. Electronically signed by: Laisha Bar MD (12/08/2021 11:21 AM) [facility]
[2021-12-08] MEDS ORDERED: IV NORMAL SALINE 1000ML BAG 1,000 ML IV ONE (14:00)
--- NOTE | 2021-12-09 17:56 | PHYS DOC ---
Past Medical History Past Medical History: Anemia, Anxiety, Cancer, CHF, COPD, High Cholesterol, Heart Disease, Hypertension, Renal Disease, Other Additional Past Medical Histor: chronic pain, breast ca, hypokalemia,PULMONARY HTN Past Surgical History: Cancer Surgery, Tonsillectomy, Other Additional Past Surgical Histo: bladder, l mastectomy Smoking Status: Never Smoker Alcohol Use: None Drug Use: None General Adult EDM: Chief Complaint: MECHANICAL FALL HPI: HPI: 76 yo F, leukemia, chronic cervical and lumbar pain, severe arthritis, s/p fall 1 week ago. States that she has been getting severe sharp cervical pain when she turns her head to the right and it has been so severe that it's caused her to collapse on the ground. No accidental mechanical falls. No headache, head trauma or LOC. No anticoagulation. 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 She has also had epidural injections before for pain as well. Scheduled to get cervical steroid shots this Saturday in 4 days. Review of Systems: Review of Systems: Constitutional: Denies fever or chills. [] Eyes: Denies change in visual acuity. [] HENT: Denies nasal congestion or sore throat. [] Respiratory: Denies cough or shortness of breath. [] Cardiovascular: Denies chest pain or edema. [] GI: Denies abdominal pain, nausea, vomiting, bloody stools or diarrhea. [] : Denies dysuria. [] Musculoskeletal: + chronic back and neck pain, or joint pain. [] Integument: Denies rash. [] Neurologic: Denies headache, focal weakness or sensory changes. [] Endocrine: Denies polyuria or polydipsia. [] Lymphatic: Denies swollen glands. [] Psychiatric: Denies depression or anxiety. [] Heart Score: C/O Chest Pain: No Risk Factors: Risk Factors: DM, Current or recent (<one month) smoker, HTN, HLP, family history of CAD, obesity. Risk Scores: Score 0 - 3: 2.5% MACE over next 6 weeks - Discharge Home Score 4 - 6: 20.3% MACE over next 6 weeks - Admit for Clinical Observation Score 7 - 10: 72.7% MACE over next 6 weeks - Early Invasive Strategies Current Medications: Current Medications Medications (Trade) Dose Ordered Sig/Felisha Start Time Stop Time Status Last Admin Dose Admin Sodium Chloride 1,000 ml @ 999 mls/hr 1X ONCE 12/08/21 14:00 12/08/21 14:41 DC 12/08/21 11:10 999 MLS/HR Allergies: Allergies: Allergies Coded Allergies Type Severity Reaction Last Updated Verified lisinopril Allergy Severe ANGIOEDEMA 07/21/17 Yes Penicillins Allergy Intermediate 07/21/17 Yes Sulfa (Sulfonamide Antibiotics) Adverse Reaction Intermediate 07/21/17 Yes Physical Exam: PE: Constitutional: Elderly female, Well developed, well nourished, no acute distress, non-toxic appearance. [] HENT: Normocephalic, atraumatic, bilateral external ears normal, oropharynx moist, no oral exudates, nose normal. [] Eyes: PERRLA, EOMI, conjunctiva normal, no discharge. [] Neck: Normal range of motion, + R paraspinal neck ttp, no midline tenderness, supple, no stridor. [] Cardiovascular:Heart rate regular rhythm, no murmur [] Lungs & Thorax: Bilateral breath sounds clear to auscultation [] Abdomen: Bowel sounds normal, soft, no tenderness, no masses, no pulsatile masses. [] Skin: Warm, dry, no erythema, no rash. [] Back: No midline tenderness, no CVA tenderness. [] Extremities: No tenderness, no cyanosis, no clubbing, ROM intact, no edema. [] Neurologic: Alert and oriented X 3, normal motor function, normal sensory function, no focal deficits noted. []normal gait Psychologic: Affect normal, judgement normal, mood normal. [] EKG: EKG: [] Radiology/Procedures: Radiology/Procedures: [] Course & Med Decision Making: Course & Med Decision Making Pertinent Labs and Imaging studies reviewed. (See chart for details) Additional Social History: PMD from non-affiliated facility. Patient Lives at home. Family History: Non-pertinent to today's complaint. Nursing Notes Reviewed Previous Medical Records requested via [facility] Web: Reviewed by me. PROCEDURE: CT HEAD AND CERVICAL SPINE WO IMPRESSION: 1. 5 mm anterolisthesis of C4 on C5 with associated advanced endplate changes and severe bilateral facet arthropathy, favoring a degenerative chronic e tiology. There is slight widening of the left facet joint at this level which is also likely due to advanced degenerative change and possible joint effusion. No fracture, subluxation or dislocation is seen. 2. Multilevel degenerative change throughout the spine, described in detail above. This results in significant stenosis at the aforementioned levels. 3. No acute intracranial finding. There are cerebral white matter changes due to chronic small vessel disease. PROCEDURE: CT THORACIC SPINE WO CONTRAST IMPRESSION: 1. 5 mm anterolisthesis of C4 on C5 with associated advanced endplate changes and severe bilateral facet arthropathy, favoring a degenerative chronic etiology. There is slight widening of the left facet joint at this level which is also likely due to advanced degenerative change and possible joint effusion. No fracture, subluxation or dislocation is seen. 2. Multilevel degenerative change throughout the spine, described in detail above. This results in significant stenosis at the aforementioned levels. 3. No acute intracranial finding. There are cerebral white matter changes due to chronic small vessel disease. EMERGENCY DEPARTMENT COURSE/ MEDICAL DECISION MAKING: I examined the patient, evaluated and addressed patient's chief complaint. Patient with chronic cervical/lumbar pain 2/2 severe arthritis. Placed in c- collar for comfort and patient notes significant improvement in sx. Per daughter at bedside, patient's BP always runs very low. No tachcyardia. A&Ox3, ambulating unassisted without difficulty, able to sit and bend over without difficulty. No acute pathology on CT Head/c-spine/thoracic spine. Offered admission for placement vs home health (social work consult) for severe pain however, patient refuses and asking to go home and will follow up with her pain specialist on Saturday for her steroid injections. States that the c-collar greatly increases her comfort. No cp/sob/palp/diaphoresis. The patient understands that todays Emergency Department evaluation does not represent a comprehensive medical workup, and it is impossible to diagnose all possible illnesses from a single Emergency Department visit. The patient verbalized understanding that it is absolutely necessary to have follow-up with regular primary care physician within 1-2 days for more detailed workup and continued exam. I explained the findings and plan to the patient, who expressed verbal understanding and agreed with plan for discharge and follow up. The patient was given after care instructions and welcomed to return to the ED for re-evaluation in 8-12 hours, especially for any new or worsening symptoms. Patient's blood pressure was elevated (>120/80) but appears stable without evidence of end organ damage, malignant hypertension, hypertensive emergency or urgency. The patient was counseled about the risks of hypertension and urged to pursue outpatient monitoring and therapy within a week with their primary care physician. The patient was stable at the time of discharge. DIAGNOSTIC IMPRESSION: 1. chronic cervical neck pain DISPOSITION: Disposition: Discharge Home. 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 Dragon Disclaimer: Dragon Disclaimer: This electronic medical record was generated, in whole or in part, using a voice recognition dictation system. Departure Departure Impression: Primary Impression: Cervical pain (neck) Disposition: 01 HOME / SELF CARE / HOMELESS Condition: STABLE Patient Instructions: Cervical Collar Additional Instructions: Please follow up with your pain specialist as scheduled. BRENDA PURI MD December 09, 2021 17:56
--- NOTE | 2021-12-10 01:12 | EKG ---
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
== END 2021-12-08 13:10 | disposition home or self-care (01) ==
LOC: ER 10:09
DX: M54.2 Cervicalgia (principal); G89.29 Other chronic pain; M54.59 Other low back pain; I11.0 Hypertensive heart disease with heart failure; I50.9 Heart failure, unspecified; E78.00 Pure hypercholesterolemia, unspecified; J44.9 Chronic obstructive pulmonary disease, unspecified; Z86.2 Personal history of diseases of the blood and blood-forming organs and certain disorders involving the immune mechanism; Z88.0 Allergy status to penicillin; Z88.2 Allergy status to sulfonamides; Z88.8 Allergy status to other drugs, medicaments and biological substances
CPT/HCPCS: 70450; 72125; 72128; 93005; 96360; 99284; J7030

== ENCOUNTER → 2021-12-11 | Outpatient (CLI) | payer MEDICARE ==
[2017-07-21 13:20] VITALS: BP 157/87
[~2021-12-11] MED LIST changes: +BUPIVACAINE MPF 0.25% 10 ML VIAL. ONE; +DEXAMETHASONE PRES.FREE 10 MG/ML VIAL. ONE
--- NOTE | 2021-12-11 11:32 | PDOC ---
Progress Note - Pain Clinic Date of Service: DOS: DATE: 12/11/21 TIME: 11:27 Diagnosis: Dx: Lumbar radiculopathy with lumbar degenerative disc disease Cervical radiculopathy with cervical degenerative disc disease Bilateral knee joint pain with osteoarthritis Bilateral shoulder joint pain with osteoarthritis Left greater trochanteric bursitis Myofascial pain History or Present Illness: HPI: 76-year-old female returns for follow-up status post lumbar epidural steroid injections most recently seen November 06, 2021. Patient reports he did very well near Hund percent improvement in her low back pain and is still helping patient's main complaint is right neck and shoulder pain as she had a fall at home about 3 weeks ago onto her right side injuring her neck was seen in the emergency department with CT scans of the head and neck with only degenerative changes found no acute changes in the cranium patient reports she is having significant pain the base the neck and right shoulder mostly superiorly on the right side only patient reports that it is a 10 on scale 10 is worst and average without the brace and is a 6 with the brace she is using some Kleenex that she has balled up and puts between the brace putting pressure in a fashion over the areas of the most pain and does help relieve it to some extent. Patient reports no radiation of the right upper extremity no loss of motor function was having difficulty going without the brace she is wearing it 24 hours a day currently. Physical Exam: VS: Blood pressure is 100/63 pulse 73 respirations 20 temperature 97.8 F weight is 128 pounds. PE: PHYSICAL EXAMINATION: GENERAL: The patient is awake, alert, oriented, appropriate, very pleasant in demeanor, patient companied by her sister. HEENT: Shows normocephalic, atraumatic. Extraocular movements are intact and symmetrical. Oral cavity: Mucous membranes moist and pink. NECK: Shows anterior throat supple without palpable lymphadenopathy noted. Swallow reflex symmetrical. CHEST: Shows normal on inspection. Breath sounds are clear bilaterally. HEART: Shows S1, S2 clear. No murmurs auscultated. ABDOMEN: Soft, nontender, nondistended. No palpable organomegaly is noted. BACK: Shows spine grossly in the midline. Normal-appearing cervical lordotic curvature. Cervical paraspinous muscles show symmetrical inspection, on palpation some moderate tenderness and significant tenderness on the right in the middle and lower distribution of the cervical paraspinous musculature as well as into the superior medial trapezius very firm ropelike musculature very tender consistent with areas of trigger point musculature also into the posterior scalene on the right side middle to upper aspect of the posterior scalene muscle very firm ropelike musculature very tender with palpation but without radiation. Patient shows extremely guarded rotation of motion of the cervical spine including extension flexion right left lateral rotation. There is mildly increased thoracic kyphosis, some mild flattening of the lumbar lordotic curvature. Lumbar paraspinous muscles show symmetrical on inspection, on palpation shows some moderate tenderness diffusely throughout the upper, middle and lower distribution of the paraspinous muscles bilaterally and also into the lower thoracic paraspinous musculature, firm and tender, but without specific trigger points, without radiation of pain. The patient has good rotational motion of the lumbar spine, both laterally as well as extension and flexion without significant difficulty. EXTREMITIES: Lower extremities show deep tendon reflexes 1+ in the patellar and tendo calcaneus tendons. Motor exam is 5 on a scale of 5 with right dorsiflexion, extension, quadriceps and hamstring flexion and 4/5 on the left. Peripheral pulses are 1+ posterior tibial. No peripheral edema is noted bilaterally. Lower extremities are warm and dry to touch, equal in color and appearance. Upper extremities show deep tendon reflexes 2+ in the bicep tricep tendons, motor exam strong with bell person strength rated 5 out of 5 bilaterally. SKIN: Shows warm and dry, good turgor. No edema. No sores, rashes or bruising throughout. Procedure: Procedure: Options were discussed with patient. Patient's old chart was reviewed as her current medication regimen updated current review of systems updated today as well. We will proceed with trigger point injections into the right cervical paraspinous musculature, right trapezius, right posterior scalene musculature. Risks were discussed including not limited to bleeding infection possibility of intravascular injection sequelae spread of local anesthetic and numbness side effects of steroid medication and poor results regarding pain control. Patient understands wished to proceed. Patient will return to clinic in approximately 2 weeks for follow-up, was counseled as to return appointment, activity level, and side effects to be aware of. Medication Injected: Med Injected: Patient seen position under sterile prep and drape patient's right neck was examined and trigger point areas were identified in the cervical paraspinous musculature, trapezius muscular, posterior scalene musculature, using a 25-gauge needle after negative aspiration each injection site total of 6 cc 0.25% ropivacaine and total of 20 mg dexamethasone was then injected. Patient tolerated the procedure well had no complications. Condition at Discharge: Condition at Discharge: Condition at discharge stable, paced tolerated procedure well and had no complications. MILLICENT SHEA MD December 11, 2021 11:32
--- NOTE | 2021-12-11 11:33 | PDOC4 ---
Procedure Note: ICD 10 Code: ICD 10 Code: M60.89 Procedure Note: Patient was consented for trigger point injections, risk were discussed including but not limited to bleeding infection possibility of intravascular injection sequelae spread of local anesthetic and numbness side effects steroid medication portals regarding pain control. Patient understands wished to proceed. Patient seen position under sterile prep and drape patient's right neck was examined and trigger point areas were identified in the cervical paraspinous musculature, trapezius muscular, posterior scalene musculature, using a 25-gauge needle after negative aspiration each injection site total of 6 cc 0.25% ropivacaine and total of 20 mg dexamethasone was then injected. Patient tolerated the procedure well had no complications. MILLICENT SHEA MD December 11, 2021 11:33
== END | disposition home or self-care (01) ==
LOC: PNCL 10:09
PROVIDERS: ATTEND Anesthesiology
DX: M79.18 Myalgia, other site (principal); M51.16 Intervertebral disc disorders with radiculopathy, lumbar region; M50.10 Cervical disc disorder with radiculopathy, unspecified cervical region; M17.0 Bilateral primary osteoarthritis of knee; M19.012 Primary osteoarthritis, left shoulder; M19.011 Primary osteoarthritis, right shoulder; M70.62 Trochanteric bursitis, left hip; Z79.899 Other long term (current) drug therapy; Z88.0 Allergy status to penicillin; Z88.2 Allergy status to sulfonamides; Z88.8 Allergy status to other drugs, medicaments and biological substances
CPT/HCPCS: 20553; J1100; J3490